=== PATIENT | male | born 1960 | race Hispanic/Latino ===

== ENCOUNTER 2021-11-25 17:11 | Inpatient (IN) | payer SELFPAY ==
[~2021-11-25] VITALS: Ht 167.6 cm; Wt 82.6 kg
[2021-11-25] MEDS ORDERED: ONDANSETRON HCL INJ 2MG/ML 2ML 2 MG/ML VIAL IV PRN ×2 (18:30→20:00)
[2021-11-25] MEDS ORDERED: SODIUM CHLORIDE 0.9% 1000ML 1,000 ML IV ONE (18:30)
[2021-11-25 19:07] LABS: HEMATOCRIT 29.9 % (38.2-49.6); HEMOGLOBIN 9.7 g/dL (14.0-18.0); MEAN CORPUSCULAR HEMOGLOBIN 31.3 pg (28-32); MEAN CORPUSCULAR HGB CONC 32.4 g/dL (31-35); MEAN CORPUSCULAR VOLUME 96.5 fL (81-99); PLATELET COUNT 159 x10e3/uL (140-360); RED CELL DISTRIBUTION WIDTH 12.5 % (11.7-14.4)
[2021-11-25 19:27] LABS: ALBUMIN 3.3 g/dL (3.5-5.0); ALBUMIN/GLOBULIN RATIO 0.8 (0.8-2.0); ANION GAP 22.8 mmol/L (8-16); CALCIUM 8.8 mg/dL (8.4-10.2); CREATININE, SERUM 14.27 mg/dL (0.72-1.25)
[2021-11-25 19:29] LABS: POTASSIUM 6.8 mmol/L (3.5-5.1)
[2021-11-25] MEDS ORDERED: INSULIN REGULAR, HUMAN 100 UNIT/1 ML IV ONE (19:30)
[2021-11-25] MEDS ORDERED: DEXTROSE 50% SYRINGE 50 ML IV STA ×2 (19:30→20:53)
[2021-11-25] MEDS ORDERED: SODIUM BICARBONATE 8.4% INJ 50 ML SYR IV STA (19:30)
[2021-11-25] MEDS ORDERED: CALCIUM CHLORIDE 10% 1.36 MEQ/ML 10ML SYR IV STA (19:30)
[2021-11-25 19:39] LABS: CLARITY,URINE CLEAR (CLEAR); COLOR,URINE YELLOW (YELLOW); KETONES,URINE NEGATIVE (NEGATIVE); LEUKOCYTE ESTERASE ,URINE TRACE (NEGATIVE); NITRITE,URINE NEGATIVE (NEGATIVE); PROTEIN,URINE DIPSTICK NEGATIVE (NEGATIVE); URINE UROBILINOGEN 0.2 mg/dL (0.2 - 1)
[2021-11-25] MEDS ORDERED: CALCIUM CHLORIDE 13.6 MEQ in SODIUM CHLORIDE 0.9% 100 ML IV ONE (19:45)
[2021-11-25 19:51] LABS: BACTERIA,URINE RARE /HPF
[2021-11-25] MEDS ORDERED: SODIUM CHLORIDE FLUSH 10 ML SYR INJ PRN (20:00)
[2021-11-25 20:05] LABS: LYMPHOCYTES % (MANUAL) 13 % (19-48); MONOCYTES % (MANUAL) 13 % (3.4-9.0); NEUTROPHILS % (MANUAL) 74 % (40-74)
[2021-11-25 20:06] LABS: PLATELET ESTIMATE ADEQUATE; PLATELET MORPHOLOGY COMMENT NORMAL; RBC MORPHOLOGY COMMENT NORMAL
[2021-11-25] MEDS: SODIUM CHLORIDE 0.9% 1000ML 1,000 ML IV SCH (20:15)
[2021-11-25] MEDS ORDERED: SOD POLYSTYRENE SULFONATE SUSP 15 GM/60 ML BTL PO ONE (20:15)
[2021-11-25 20:28] LABS: ABG PH 7.23 (7.35-7.45)
[2021-11-25 20:29] LABS: ABG HCO3 8 mmol/L (22-26); ABG PCO2 20 mmHg (35-45); ABG PO2 115 mmHg (80-105); ABG TCO2 9
[2021-11-25] MEDS ORDERED: SODIUM BICARBONATE 8.4% SYRING 150 ML in DEXTROSE 5% 1,000 ML IV ONE (20:30)
[2021-11-25 23:30] VITALS: BP 159/95
[2021-11-25 23:36] VITALS: BP 159/96
[2021-11-26] VITALS (15 sets, daily range): BP systolic 116–170; BP diastolic 82–103
[2021-11-26] MEDS ORDERED: MELATONIN 3 MG TAB PO PRN (02:00)
[2021-11-26] MEDS ORDERED: MAGNESIUM/ALUMINUM/SIMETHICONE 30 ML UDC PO PRN (02:00)
[2021-11-26] MEDS ORDERED: HYDRALAZINE HCL 20 MG/ML VIAL IV PRN (02:00)
[2021-11-26] MEDS ORDERED: GUAIFENESIN/DEXTROMETHORPHAN LIQD 5 ML UDC PO PRN (02:00)
[2021-11-26] MEDS ORDERED: SOD POLYSTYRENE SULFONATE SUSP 15 GM/60 ML BTL PO PRN (02:15)
[2021-11-26] MEDS: SODIUM CHLORIDE 0.9% 1000ML 1,000 ML IV SCH ×3 (05:40→19:53)
[2021-11-26 06:19] LABS: BASOPHILS % 0.3 % (0.0-1.0); EOSINOPHILS % 0.6 % (0.0-6.0); HEMATOCRIT 30.5 % (38.2-49.6); HEMOGLOBIN 10.1 g/dL (14.0-18.0); LYMPHOCYTES # (AUTO) 0.6 (1.0-3.2); MEAN CORPUSCULAR HEMOGLOBIN 31.1 pg (28-32); MEAN CORPUSCULAR HGB CONC 33.1 g/dL (31-35); MEAN CORPUSCULAR VOLUME 93.8 fL (81-99); MONOCYTES # (AUTO) 0.6 (0.2-0.8); NEUTROPHILS # (AUTO) 2.3 (2.1-6.9); NEUTROPHILS % 64.5 % (38.7-80.0); PLATELET COUNT 177 x10e3/uL (140-360); RED BLOOD COUNT 3.25 x10e6/uL (4.3-5.7); RED CELL DISTRIBUTION WIDTH 12.4 % (11.7-14.4)
[2021-11-26 06:46] LABS: ANION GAP 13.3 mmol/L (8-16); CREATININE, SERUM 6.22 mg/dL (0.72-1.25); POTASSIUM 5.3 mmol/L (3.5-5.1)
[2021-11-26] MEDS: AMLODIPINE BESYLATE 5 MG TAB PO SCH (09:03)
[2021-11-26] MEDS: ENOXAPARIN 30 MG/0.3 ML SYR SC SCH (16:54)
[2021-11-26] MEDS: ACETAMINOPHEN 325 MG TAB PO PRN (19:53)
[2021-11-27] MEDS: SODIUM CHLORIDE 0.9% 1000ML 1,000 ML IV SCH ×3 (03:09→14:45)
[2021-11-27 05:19] LABS: ALBUMIN 2.9 g/dL (3.5-5.0); ALBUMIN/GLOBULIN RATIO 0.7 (0.8-2.0); ANION GAP 11.2 mmol/L (8-16); CALCIUM 8.2 mg/dL (8.4-10.2); CREATININE, SERUM 1.67 mg/dL (0.72-1.25); MAGNESIUM 1.2 MG/DL (1.3-2.1); PHOSPHORUS 2.6 MG/DL (2.3-4.7); POTASSIUM 4.2 mmol/L (3.5-5.1)
[2021-11-27 05:41] LABS: FERRITIN 484.67 ng/mL (21.81-274.66)
[2021-11-27 08:00] VITALS: BP 161/103
[2021-11-27 08:02] VITALS: BP 161/103
[2021-11-27] MEDS: ACETAMINOPHEN 325 MG TAB PO PRN ×2 (10:04→16:19)
[2021-11-27] MEDS: AMLODIPINE BESYLATE 5 MG TAB PO SCH (10:04)
[2021-11-27] MEDS ORDERED: ONDANSETRON HCL 4 MG ORAL DISINTEGRATING TAB PO PRN (10:15)
[2021-11-27] MEDS ORDERED: NORVASC5 MG PO (11:53)
[2021-11-27] MEDS ORDERED: FLOMAX0.4 MG PO (11:55)
[2021-11-27 12:00] VITALS: BP 153/99
[2021-11-27 16:31] VITALS: BP 159/97
[2021-11-27] MEDS: ENOXAPARIN 30 MG/0.3 ML SYR SC SCH (17:00)
[2021-11-27 17:49] LABS: CLARITY,URINE CLOUDY (CLEAR); COLOR,URINE AMBER (YELLOW); KETONES,URINE NEGATIVE (NEGATIVE); LEUKOCYTE ESTERASE ,URINE TRACE (NEGATIVE); NITRITE,URINE POSITIVE (NEGATIVE); PROTEIN,URINE DIPSTICK >=300 (NEGATIVE); URINE UROBILINOGEN 0.2 mg/dL (0.2 - 1)
[2021-11-27 18:00] LABS: BACTERIA,URINE MANY /HPF; EPITHELIAL CELLS,URINE FEW /LPF; RBC,URINE >50 /HPF (0-5); WBC,URINE (MAN) 21-50 /HPF (0-5)
[2021-11-27 20:00] VITALS: BP 151/96
[2021-11-28] VITALS: BP 158/98
[2021-11-28 04:00] VITALS: BP 161/98
[2021-11-28 06:05] LABS: ANION GAP 11.9 mmol/L (8-16); CALCIUM 7.6 mg/dL (8.4-10.2); CREATININE, SERUM 1.11 mg/dL (0.72-1.25); MAGNESIUM 1.2 MG/DL (1.3-2.1); POTASSIUM 3.9 mmol/L (3.5-5.1)
[2021-11-28 07:47] VITALS: BP 154/103
[2021-11-28] MEDS: AMLODIPINE BESYLATE 5 MG TAB PO SCH (08:26)
[2021-11-28] MEDS: SODIUM CHLORIDE 0.9% 1000ML 1,000 ML IV SCH (10:15)
[2021-11-28] MEDS ORDERED: NORVASC10 MG PO (11:05)
[2021-11-28] MEDS: ACETAMINOPHEN 325 MG TAB PO PRN (11:22)
[2021-11-28] MEDS ORDERED: AMOX TR-K CLV1 EAC2 PO (11:25)
[2021-11-28] MEDS ORDERED: POTASSIUM CHLORIDE 20 MEQ TAB CR PO ONE (11:45)
[2021-11-28 12:53] VITALS: BP 149/95
== END 2021-11-28 14:05 | disposition home or self-care (01) | DRG 683 ==
LOC: ER 18:07 → ERHOLD 19:59 → ICU 23:25 → MED/SURG3 11-26 14:22 → ICU 11-26 14:39 → MED/SURG 11-26 20:52
PROVIDERS: ADMIT Internal Medicine Critical Care Medicine; ATTEND Internal Medicine Critical Care Medicine
DX: N17.9 Acute kidney failure, unspecified (principal); E87.2 Acidosis; N13.8 Other obstructive and reflux uropathy; N13.6 Pyonephrosis; N40.1 Benign prostatic hyperplasia with lower urinary tract symptoms; I16.0 Hypertensive urgency; D64.9 Anemia, unspecified; E87.5 Hyperkalemia; E87.8 Other disorders of electrolyte and fluid balance, not elsewhere classified; R33.8 Other retention of urine; R31.0 Gross hematuria; N28.1 Cyst of kidney, acquired; D72.819 Decreased white blood cell count, unspecified; Z20.822 Contact with and (suspected) exposure to COVID-19
CPT/HCPCS: 0223U; 36415; 51700; 71045; 76770; 80048; 80053; 81001; 82728; 82805; 82948; 83540; 83735; 84100; 84466; 85007; 85025; 85027; 87086; 93005; 99284; J0696; J1650; J1817; J2405; J7030; J7050; J7070; J7799